=== PATIENT | male | born 1960 | race Caucasian/White ===

== ENCOUNTER → 2021-07-08 | Outpatient (CLI) | payer OTHER ==
[2021-07-09 08:13] LABS: HBSAG SCREEN Positive (Negative); HEP BE AG Negative (Negative)
[2021-07-09 13:13] LABS: HBV IU/ML <10 IU/mL (.)
== END ==
LOC: US 08:51
PROVIDERS: Internal Medicine Gastroenterology
DX: Z86.19 Personal history of other infectious and parasitic diseases (principal); K76.89 Other specified diseases of liver; K80.20 Calculus of gallbladder without cholecystitis without obstruction
CPT/HCPCS: 36415; 76705; 80048; 87340; 87350; 87517

== ENCOUNTER → 2022-01-22 | Outpatient (CLI) | payer OTHER | LOC: US 14:30 | DX: N17.9 Acute kidney failure, unspecified (principal) ==